=== PATIENT | male | born 1975 | race Two or more races ===

== ENCOUNTER → 2016-07-31 | Outpatient (CLI) | payer OTHER ==
--- NOTE | 2016-07-31 11:14 | KCIC ---
PROCEDURE Chest, two views. HISTORY Tuberculosis. FINDINGS Frontal and lateral views of the chest are obtained. There is no infiltrate, effusion or pneumothorax. The heart is normal in size. IMPRESSION No acute pulmonary finding. Specifically, no radiographic evidence of active pulmonary tuberculosis. Electronically signed by: Radhika Pires (Jul 31, 2016 11:13:03)
== END | disposition home or self-care (01) ==
LOC: KCIC 09:44
PROVIDERS: ATTEND Family Medicine
DX: R76.11 Nonspecific reaction to tuberculin skin test without active tuberculosis (principal)
CPT/HCPCS: 71020

== ENCOUNTER → 2016-08-31 | Outpatient (CLI) | payer OTHER ==
--- NOTE | 2016-08-31 16:15 | KCIC ---
PROCEDURE Renal ultrasound HISTORY Chronic kidney disease COMPARISON None FINDINGS Multiple sonographic images of the kidneys and urinary bladder are submitted. Right kidney measured 10.4 x 5 x 5 centimeters. Left kidney measured 10.6 x 4.4 x 5.3 centimeters. Abdominal aortic caliber is within normal limits up to 1.8 centimeters. There is segmental visualization of the inferior vena cava. Ureteral jets are seen in the urinary bladder lumen bilaterally. Urinary bladder morphology is within limits. Prostate gland is estimated at 3.5 x 2.7 x 3.3 centimeters. No free fluid is demonstrated. Renal cortical echogenicity can be considered within normal limits. IMPRESSION No significant abnormality is demonstrated. Electronically signed by: Stanley Saldana MD (Aug 31, 2016 16:13:54)
== END | disposition home or self-care (01) ==
LOC: KCIC US 14:21
PROVIDERS: ATTEND Family Medicine
DX: N18.9 Chronic kidney disease, unspecified (principal)
CPT/HCPCS: 76770